=== PATIENT | female | born 1965 | race African-American/Black ===

== ENCOUNTER 2016-11-14 13:35 | Inpatient (IN) | payer OTHER ==
[2016-11-14 15:27] VITALS: BMI 16.1
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
[2016-11-14] MEDS ORDERED: guaiFENesin/D-METHORPHAN HB 10 ML UNIT-DOSE CUPS PO PRN (18:13)
[2016-11-14] MEDS ORDERED: NICOTINE POLACRILEX 4 MG GUM BC PRN (18:13)
[2016-11-14] MEDS ORDERED: diphenhydrAMINE HCL 50 MG CAPSULE PO PRN (18:13)
[2016-11-14] MEDS ORDERED: MAGNESIUM CITRATE 300 ML BOTTLE PO PRN (18:13)
[2016-11-14] MEDS ORDERED: MENTHOL/PHENOL 1 EACH UD MM PRN (18:13)
[2016-11-14] MEDS ORDERED: P-EPHED 60MG/TRIPROLIDI 2.5MG TABLET PO PRN (18:13)
[2016-11-14] MEDS ORDERED: MAG HYDROX/AL HYDROX/SIMETH 30 ML UNIT-DOSE CUP PO PRN (18:13)
[2016-11-14] MEDS ORDERED: LOPERAMIDE HCL 2 MG CAPSULE PO PRN (18:13)
[2016-11-14] MEDS ORDERED: MAGNESIUM HYDROX 2400MG/30ML ORAL SUSPENSION 30 ML CUP PO PRN (18:13)
[2016-11-14] MEDS ORDERED: chlordiazePOXIDE HCL 25 MG CAPSULE PO PRN (18:13)
[2016-11-14] MEDS ORDERED: ALBUTEROL SO4 6.7 GM HFA INHALER IH PRN (18:38)
[2016-11-14] MEDS ORDERED: ALBUTEROL SO4 2.5/IPRATROPIUM 0.5 INH SOL 3 ML VIAL.NEB. NEB PRN (18:38)
[2016-11-14] MEDS ORDERED: METHADONE HCL 10 MG TABLET (FOR DETOX USE ONLY) PO ONE ×2 (18:45→23:00)
[2016-11-14] MEDS: EMTRICITAB/RILPIVIRINE/TENOFOV 1 EACH TABLET PO SCH (19:22)
[2016-11-14] MEDS: NEOMYCIN/POLYMYXN/HC OTIC SUSPENSION 10 ML BOTTLE AS SCH ×2 (19:23→22:59)
[2016-11-14] MEDS: AMOXICILLIN 500 MG CAPSULE (FP) PO SCH (22:59)
[2016-11-14] MEDS: RANITIDINE HCL 150 MG TABLET (FP) PO SCH (23:00)
[2016-11-14] MEDS: BUDESONIDE/FORMETEROL FUMARATE 80/4.5 mcg INHALER IH SCH (23:00)
[2016-11-14] MEDS: THIAMINE HCL 100 MG TABLET (FP) PO SCH (23:00)
[2016-11-14] MEDS: chlordiazePOXIDE HCL 25 MG CAPSULE PO SCH (23:00)
[2016-11-14 23:25] LABS: URINE APPEARANCE SLCLOUDY; URINE BILIRUBIN NEGATIVE (NEGATIVE); URINE BLOOD NEGATIVE (NEGATIVE); URINE COLOR YELLOW; URINE GLUCOSE (UA) NEGATIVE (NEGATIVE); URINE KETONE NEGATIVE (NEGATIVE); URINE LEUK ESTERASE NEGATIVE (NEGATIVE); URINE NITRITE NEGATIVE (NEGATIVE); URINE PROTEIN NEGATIVE (NEGATIVE); URINE UROBILINOGEN NEGATIVE mg/dL (0.2-1.0)
[2016-11-15] MEDS: chlordiazePOXIDE HCL 25 MG CAPSULE PO SCH ×4 (05:26→23:24)
[2016-11-15] MEDS: AMOXICILLIN 500 MG CAPSULE (FP) PO SCH ×3 (05:27→23:23)
[2016-11-15] MEDS ORDERED: METHADONE HCL 10 MG TABLET (FOR DETOX USE ONLY) PO SCH (10:00)
[2016-11-15] MEDS: NEOMYCIN/POLYMYXN/HC OTIC SUSPENSION 10 ML BOTTLE AS SCH ×4 (11:07→23:24)
[2016-11-15] MEDS: EMTRICITAB/RILPIVIRINE/TENOFOV 1 EACH TABLET PO SCH (11:07)
[2016-11-15] MEDS: NICOTINE 21 MG/24 HOURS TOPICAL PATCH TD SCH (11:08)
[2016-11-15] MEDS: PRENATAL VITAMINS W/ FOLIC ACID TABLET (FP) PO SCH (11:09)
[2016-11-15] MEDS: BUDESONIDE/FORMETEROL FUMARATE 80/4.5 mcg INHALER IH SCH ×2 (11:09→23:24)
[2016-11-15] MEDS: RANITIDINE HCL 150 MG TABLET (FP) PO SCH ×2 (11:10→23:24)
[2016-11-15] MEDS: ACETAMINOPHEN 325 MG TABLET (FP) PO PRN (12:30)
--- NOTE | 2016-11-15 13:44 | PN ---
S CIWA - CIWA Score Nausea/Vomitin Muscle Tremors: 2 Anxiety: 2 Agitation: 2 Paroxysmal Sweats: 2 Orientation: 0-Oriented Tacttile Disturbances: 1-Very Mild Itch/Numbness Auditory Disturbances: 1-Very Mild Visual Disturbances: 1-Very Mild Sensitivity Headache: 1-Very Mild CIWA-Ar Total Score: 14 BHS COWS - Scale Resting Pulse: 0= IN 80 or Below Sweatin=Flushed/Facial Moisture Restless Observation: 1= Difficult to Sit Still Pupil Size: 0= Normal to Room Light Bone or Joint Aches: 2= Severe Diffuse Aches Runny Nose/ Eye Tearin= Runny Nose/Eyes GI Upset > 30mins: 2= Nausea/Diarrhea Tremor Observation of Outstretched Hands: 2= Slight Tremor Visible Yawning Observation: 1= 1-2x During Session Anxiety or Irritability: 1=Feels Anxious/Irritable Goose Flesh Skin: 0=Smooth Skin COWS Score: 13 BHS Progress Note (SOAP) Subjective: interrupted sleep, anxiety, tremors Objective: 11/15/16 13:43 Vital Signs - 8 hr 11/15/16 11/15/16 11/15/16 06:56 06:58 11:13 Temperature 97.5 F L 98.2 F 98.4 F Pulse Rate 53 L 63 98 H Respiratory 16 16 16 Rate Blood Pressure 101/56 141/74 130/89 Laboratory Last Values Urine Color Yellow 11/14/16 22:06 Urine Appearance Slcloudy 11/14/16 22:06 Urine pH 5.0 (5.0-8.0) 11/14/16 22:06 Urine Protein Negative (NEGATIVE) 11/14/16 22:06 Urine Glucose (UA) Negative (NEGATIVE) 11/14/16 22:06 Urine Ketones Negative (NEGATIVE) 11/14/16 22:06 Urine Blood Negative (NEGATIVE) 11/14/16 22:06 Urine Nitrite Negative (NEGATIVE) 11/14/16 22:06 Urine Bilirubin Negative (NEGATIVE) 11/14/16 22:06 Urine Urobilinogen Negative mg/dL (0.2-1.0) 11/14/16 22:06 labs pending Assessment: 11/15/16 13:44 withdrawal sx Plan: continue detox
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
[2016-11-15] MEDS: THIAMINE HCL 100 MG TABLET (FP) PO SCH (23:24)
[2016-11-16] MEDS: ACETAMINOPHEN 325 MG TABLET (FP) PO PRN ×2 (01:11→11:11)
[2016-11-16] MEDS: AMOXICILLIN 500 MG CAPSULE (FP) PO SCH ×3 (05:57→22:43)
[2016-11-16] MEDS: chlordiazePOXIDE HCL 25 MG CAPSULE PO SCH ×3 (05:57→20:11)
[2016-11-16] MEDS: EMTRICITAB/RILPIVIRINE/TENOFOV 1 EACH TABLET PO SCH (07:29)
--- NOTE | 2016-11-16 10:27 | PN ---
[facility] CIWA - CIWA Score Nausea/Vomitin-Mild Nausea/No Vomiting Muscle Tremors: 4-Moderate,w/Arms Extend Anxiety: 4-Mod. Anxious/Guarded Agitation: 3 Paroxysmal Sweats: 3 Orientation: 0-Oriented Tacttile Disturbances: 1-Very Mild Itch/Numbness Auditory Disturbances: 0-None Visual Disturbances: 0-None Headache: 0-None Present CIWA-Ar Total Score: 16 BHS COWS - Scale Resting Pulse: 0= [place] 80 or Below Sweatin=Flushed/Facial Moisture Restless Observation: 1= Difficult to Sit Still Pupil Size: 0= Normal to Room Light Bone or Joint Aches: 2= Severe Diffuse Aches Runny Nose/ Eye Tearin= Runny Nose/Eyes GI Upset > 30mins: 2= Nausea/Diarrhea Tremor Observation of Outstretched Hands: 2= Slight Tremor Visible Yawning Observation: 1= 1-2x During Session Anxiety or Irritability: 2=Irritable/Anxious Goose Flesh Skin: 0=Smooth Skin COWS Score: 14 S Progress Note (SOAP) Subjective: Anxiety,tremors,sweating,interrupted sleep,restless. Pt. c/o severe abdominal pain, denies constipation. Objective: 11/16/16 10:24 Vital Signs - 8 hr 11/16/16 11/16/16 03:30 06:40 Temperature 97.7 F Pulse Rate 65 Respiratory 18 16 Rate Blood Pressure 109/65 Laboratory Tests 11/14/16 22:06 Urine Color Yellow Urine Appearance Slcloudy Urine pH 5.0 Urine Protein Negative Urine Glucose (UA) Negative Urine Ketones Negative Urine Blood Negative Urine Nitrite Negative Urine Bilirubin Negative Urine Urobilinogen Negative blood work not done,paper sorter and counter unable to obtain,we'll re-order Abdomen : soft with diffuse pain & right CVA tenderness Assessment: 11/16/16 10:25 Withdrawal sx Plan: Continue detox KUB continue amoxicillin
[2016-11-16] MEDS: NICOTINE 21 MG/24 HOURS TOPICAL PATCH TD SCH (11:09)
[2016-11-16] MEDS: BUDESONIDE/FORMETEROL FUMARATE 80/4.5 mcg INHALER IH SCH ×2 (11:09→22:46)
[2016-11-16] MEDS: RANITIDINE HCL 150 MG TABLET (FP) PO SCH ×2 (11:09→23:06)
[2016-11-16] MEDS: PRENATAL VITAMINS W/ FOLIC ACID TABLET (FP) PO SCH (11:09)
[2016-11-16] MEDS: METHADONE HCL 5 MG TABLET (FOR DETOX USE ONLY) PO SCH (11:10)
[2016-11-16] MEDS: NEOMYCIN/POLYMYXN/HC OTIC SUSPENSION 10 ML BOTTLE AS SCH ×4 (11:10→22:46)
[2016-11-16] MEDS: THIAMINE HCL 100 MG TABLET (FP) PO SCH (22:43)
[2016-11-16] MEDS: chlordiazePOXIDE 5 MG CAPSULE PO SCH (23:06)
[2016-11-17] MEDS: chlordiazePOXIDE 5 MG CAPSULE PO SCH ×3 (05:51→17:37)
[2016-11-17] MEDS: AMOXICILLIN 500 MG CAPSULE (FP) PO SCH ×3 (05:51→22:46)
[2016-11-17] MEDS: IBUPROFEN 600 MG TABLET (FP) PO PRN ×2 (06:20→12:01)
[2016-11-17 09:45] LABS: BASOPHIL 1.1 % (0-2.0); EOSINOPHIL 0.9 % (0-4.5); MCHC 32.6 g/dl (32.0-36.0); MEAN CELL VOLUME 95.1 fl (80-96); MEAN PLT VOLUME 8.5 fl (7.5-11.1); NEUTROPHILS 46.2 % (42.8-82.8); PLATELET COUNT 236 K/MM3 (134-434); WHITE BLOOD COUNT 3.7 K/mm3 (4.0-10.0)
[2016-11-17 09:57] LABS: ALBUMIN 2.4 g/dl (3.4-5.0); AMYLASE 82 U/L (25-115); ANION GAP 2 (8-16); CALCIUM 8.5 mg/dL (8.5-10.1); CO2 34 mmol/L (21-32); GLUCOSE,RANDOM 51 mg/dL (74-106); SGPT/ALT 46 U/L (12-78)
[2016-11-17 10:00] LABS: ALK PHOS 159 U/L (45-117); BILIRUBIN,TOTAL 0.3 mg/dL (0.2-1.0); CREATININE 0.7 mg/dL (0.55-1.02); SGOT/AST 99 U/L (15-37); TOT PROT 7.5 g/dl (6.4-8.2)
[2016-11-17] MEDS: METHADONE HCL 5 MG TABLET (FOR DETOX USE ONLY) PO SCH (10:39)
[2016-11-17] MEDS: EMTRICITAB/RILPIVIRINE/TENOFOV 1 EACH TABLET PO SCH (10:39)
[2016-11-17] MEDS: BUDESONIDE/FORMETEROL FUMARATE 80/4.5 mcg INHALER IH SCH ×2 (10:40→22:54)
[2016-11-17] MEDS: RANITIDINE HCL 150 MG TABLET (FP) PO SCH ×2 (10:40→22:46)
[2016-11-17] MEDS: PRENATAL VITAMINS W/ FOLIC ACID TABLET (FP) PO SCH (10:40)
[2016-11-17] MEDS: NICOTINE 21 MG/24 HOURS TOPICAL PATCH TD SCH (10:41)
[2016-11-17] MEDS: NEOMYCIN/POLYMYXN/HC OTIC SUSPENSION 10 ML BOTTLE AS SCH ×4 (10:45→22:53)
--- NOTE | 2016-11-17 11:03 | PN ---
BHS Progress Note (SOAP) Subjective: body aches sweats tired Objective: 11/17/16 11:03 Vital Signs Temperature 96.4 F L 11/17/16 10:24 Pulse Rate 84 11/17/16 10:24 Respiratory Rate 18 11/17/16 10:24 Blood Pressure 104/68 11/17/16 10:24 O2 Sat by Pulse Oximetry (%) awake/alert ambulating no acute distress Assessment: 11/17/16 11:03 withdrawal sx Plan: continue detox increase fluids
[2016-11-17] MEDS ORDERED: SODIUM PHOSPHATE/NA BIPHOS 133 ML ENEMA PR ONE (15:49)
--- NOTE | 2016-11-17 17:03 | EKG ---
Test Reason : Blood Pressure : / mmHG Vent. Rate : 060 BPM Atrial Rate : 060 BPM P-R Int : 148 ms QRS Dur : 076 ms QT Int : 418 ms P-R-T Axes : 070 076 070 degrees QTc Int : 418 ms NORMAL SINUS RHYTHM NORMAL ECG NO PREVIOUS ECGS AVAILABLE Confirmed by ESTHER GUILLERMO MD ([id number]) on 11/17/2016 5:02:58 PM Referred By: Hansel Pelletier Confirmed By:ESTHER GUILLERMO MD
[2016-11-17] MEDS: THIAMINE HCL 100 MG TABLET (FP) PO SCH (22:45)
[2016-11-17] MEDS: chlordiazePOXIDE HCL 10 MG CAPSULE PO SCH (22:46)
[2016-11-18] MEDS: chlordiazePOXIDE HCL 10 MG CAPSULE PO SCH ×3 (05:28→17:08)
[2016-11-18] MEDS: AMOXICILLIN 500 MG CAPSULE (FP) PO SCH ×3 (08:00→22:25)
--- NOTE | 2016-11-18 09:50 | PN ---
BHS Progress Note (SOAP) Subjective: nausea, sweats, interrupted sleep, anxiety, tremros Objective: 11/18/16 09:49 Vital Signs - 8 hr 11/18/16 11/18/16 03:30 06:00 Temperature 97.7 F Pulse Rate 86 Respiratory 20 16 Rate Blood Pressure 100/64 Laboratory Tests 11/14/16 11/17/16 11/17/16 22:06 07:00 07:00 WBC 3.7 L RBC 4.49 Hgb 13.9 Hct 42.7 MCV 95.1 MCH 31.0 MCHC 32.6 RDW 14.0 Plt Count 236 MPV 8.5 Neutrophils % 46.2 Lymphocytes % 34.6 Monocytes % 17.2 H Eosinophils % 0.9 Basophils % 1.1 Sodium 135 L Potassium 4.2 Chloride 99 Carbon Dioxide 34 H Anion Gap 2 L BUN 11 Creatinine 0.7 Creat Clearance w eGFR > 60 Random Glucose 51 L Calcium 8.5 Total Bilirubin 0.3 AST 99 H ALT 46 Alkaline Phosphatase 159 H Total Protein 7.5 Albumin 2.4 L Total Amylase 82 Lipase 225 Urine Color Yellow Urine Appearance Slcloudy Urine pH 5.0 Ur Specific [place] 1.025 Urine Protein Negative Urine Glucose (UA) Negative Urine Ketones Negative Urine Blood Negative Urine Nitrite Negative Urine Bilirubin Negative Urine Urobilinogen Negative RPR Titer 11/17/16 07:00 WBC RBC Hgb Hct MCV MCH MCHC RDW Plt Count MPV Neutrophils % Lymphocytes % Monocytes % Eosinophils % Basophils % Sodium Potassium Chloride Carbon Dioxide Anion Gap BUN Creatinine Creat Clearance w eGFR Random Glucose Calcium Total Bilirubin AST ALT Alkaline Phosphatase Total Protein Albumin Total Amylase Lipase Urine Color Urine Appearance Urine pH Ur Specific [place] Urine Protein Urine Glucose (UA) Urine Ketones Urine Blood Urine Nitrite Urine Bilirubin Urine Urobilinogen RPR Titer Nonreactive Assessment: 11/18/16 09:49 withdrawal sx Plan: cont detox, KUB results checked
[2016-11-18] MEDS ORDERED: SENNOSIDES 8.6MG TABLET (FP) PO ONE (09:51)
[2016-11-18] MEDS ORDERED: DOCUSATE SODIUM 100 MG CAPSULE (FP) PO ONE (09:52)
[2016-11-18] MEDS ORDERED: METHADONE HCL 10 MG TABLET (FOR DETOX USE ONLY) PO SCH (10:00)
[2016-11-18] MEDS ORDERED: AMMONIUM LACTATE 12% LOTION 225 GM BOTTLE TP PRN (10:35)
[2016-11-18] MEDS: EMTRICITAB/RILPIVIRINE/TENOFOV 1 EACH TABLET PO SCH (10:38)
[2016-11-18] MEDS: PRENATAL VITAMINS W/ FOLIC ACID TABLET (FP) PO SCH (10:39)
[2016-11-18] MEDS: NICOTINE 21 MG/24 HOURS TOPICAL PATCH TD SCH (10:40)
[2016-11-18] MEDS: RANITIDINE HCL 150 MG TABLET (FP) PO SCH ×2 (10:40→22:25)
[2016-11-18] MEDS: BUDESONIDE/FORMETEROL FUMARATE 80/4.5 mcg INHALER IH SCH ×2 (10:42→22:24)
[2016-11-18] MEDS: NEOMYCIN/POLYMYXN/HC OTIC SUSPENSION 10 ML BOTTLE AS SCH ×4 (10:43→22:26)
[2016-11-18] MEDS: CLOTRIMAZOLE/BETAMET DIPROP 15 GM TUBE TP SCH ×2 (11:24→22:41)
[2016-11-18] MEDS: IBUPROFEN 600 MG TABLET (FP) PO PRN ×2 (12:16→18:18)
--- NOTE | 2016-11-18 14:17 | PN ---
S Progress Note Note: KUB reports fecal impaction, patient made aware, pain much better reports having moved bowls o/e hyperactive bowl sounds, abdo soft non tender no rebound or guarding, no masses, no distension a/p: constipation - colace and senna, fluids and ambulation encoruaged. nursing made aware
[2016-11-18] MEDS ORDERED: DOCUSATE SODIUM 100 MG CAPSULE (FP) PO SCH (22:00)
[2016-11-18] MEDS ORDERED: SENNOSIDES 8.6MG TABLET (FP) PO SCH (22:00)
[2016-11-18] MEDS: THIAMINE HCL 100 MG TABLET (FP) PO SCH (22:25)
[2016-11-19] MEDS: AMOXICILLIN 500 MG CAPSULE (FP) PO SCH (05:31)
[2016-11-19] MEDS ORDERED: METHADONE HCL 5 MG TABLET (FOR DETOX USE ONLY) PO SCH (06:00)
[2016-11-19 06:41] VITALS: BP 125/74; PULSE 67; TEMP 97.9
--- NOTE | 2016-11-19 09:41 | DS ---
[facility] Detox Discharge Summary Admission Date: 11/14/16 Discharge Date: 11/19/16 - History Present History: Alcohol Dependence, Cocaine Dependence, Opioid Dependence - Physical Exam Results Vital Signs: Vital Signs Temperature 97.9 F 11/19/16 06:41 Pulse Rate 67 11/19/16 06:41 Respiratory Rate 18 11/19/16 06:41 Blood Pressure 125/74 11/19/16 06:41 O2 Sat by Pulse Oximetry (%) - Treatment Hospital Course: Detox Protocol Followed, Detoxed Safely, Responded well, Discharged Condition Good, Rehab Referral Accepted - Medication Discharge Medications: Ambulatory Orders Amoxicillin - [Amoxicillin 500mg Capsule -] 500 mg PO TID 7 Days 11/18/16 Emtricitab/Rilpivirine/Tenofov [Complera Tablet -] 1 each PO DAILY 30 Days 11/18 Fluticasone/Vilanterol [Breo Ellipta 100-25 Mcg INH] 1 each IH BID #1 inh - Diagnosis (1) Alcohol dependence with uncomplicated withdrawal Status: Chronic (2) Left middle ear infection Status: Acute Qualifiers: Otitis media type: suppurative Chronicity: unspecified Qualified Code(s): H66.42 - Suppurative otitis media, unspecified, left ear (3) Opioid dependence with withdrawal Status: Chronic (4) Weight loss Status: Acute (5) Asthma Status: Chronic Qualifiers: Asthma severity: mild persistent Asthma complication type: with status asthmaticus Qualified Code(s): J45.32 - Mild persistent asthma with status asthmaticus (6) COPD (chronic obstructive pulmonary disease) Status: Chronic Qualifiers: COPD type: emphysema Emphysema type: unilateral Qualified Code(s ): J43.0 - Unilateral pulmonary emphysema [MacLeod's syndrome] (7) Hepatitis C carrier Status: Chronic - AMA Did Patient Leave Against Medical Advice: No
== END 2016-11-19 07:15 | disposition home or self-care (01) | DRG 897 ==
LOC: YASAS 13:35 → Y6N 17:51
PROVIDERS: ADMIT Internal Medicine; ATTEND Internal Medicine
PROC: HZ2ZZZZ Detoxification Services for Substance Abuse Treatment (ICD-10-PCS; principal; 2016-11-14)
DX: F11.23 Opioid dependence with withdrawal (principal); J45.32 Mild persistent asthma with status asthmaticus; Z68.1 Body mass index [BMI] 19.9 or less, adult; F10.230 Alcohol dependence with withdrawal, uncomplicated; F34.1 Dysthymic disorder; J43.0 Unilateral pulmonary emphysema [MacLeod's syndrome]; K21.9 Gastro-esophageal reflux disease without esophagitis; H66.42 Suppurative otitis media, unspecified, left ear; B18.2 Chronic viral hepatitis C; R63.4 Abnormal weight loss; Z91.5 Personal history of self-harm; Z59.0 Homelessness
CPT/HCPCS: 36415; 74000-TC; 80053; 81003; 82150; 83690; 85025; 86593; 93005; 93010